=== PATIENT | female | born 1945 | race Caucasian/White ===

== ENCOUNTER 2016-12-07 08:43 | Emergency (ER) | payer MEDICARE, BC ==
--- NOTE | 2016-12-07 09:05 | Emergency Department Record ---
History of Present Illness - General Chief complaint: Rectal bleeding Stated complaint: Rectal Bleed Time Seen by Provider: 12/07/16 08:56 Source: Patient Mode of Arrival: Ambulatory Limitations: No limitations - History of Present Illness Initial comments: The patient is here due to having rectal bleeding for one day. She has had mild abdominal cramping in the lower abdomen and then has had bright red blood per rectum. The patient states she has had 7-8 episodes of bleeding since the onset at 4pm yesterday. She denies any dizziness, lightheadedness, nausea, vomiting, fever or chills. Her last colonoscopy was over 10 years ago and her only abdominal surgery was an exploratory surgery with an Appendectomy. She states she has no hx of similar issues or problems. Presently the patient only has some cramping prior to the bleeding and no pain in between episodes. MD complaint: Gross hematochezia Onset/Timin -: Days(s) Radiation: Suprapubic Severity scale (1-10): 5 Quality: Cramping Consistency: Intermittent - Related Data Home Medications Medication Instructions Recorded Confirmed Last Taken Aspirin 325 mg PO DAILY 12/07/16 12/07/16 1 Day Ago ~12/06/16 Previous Rx's Medication Instructions Recorded Ciprofloxacin HCl [Cipro] 500 mg PO Q12HR #14 tablet 12/07/16 Metronidazole [Flagyl] 500 mg PO BID #14 tablet 12/07/16 Allergies Allergy/AdvReac Type Severity Reaction Status Date / Time iodine Allergy Severe ANAPHYLAXIS Verified 12/07/16 08:49 erythromycin base Allergy Intermediate VOMITING Verified 12/07/16 08:49 Travel Screening - Travel/Exposure Within Last 30 Days Have you traveled within the last 30 days?: No - Travel/Exposure Within Last Year Have you traveled outside the [place] in the last year?: No - Additonal Travel Details Have you been exposed to anyone with a communicable illness?: No - Travel Symptoms Symptom Screening: None Review of Systems Constitutional: Denies: Chills, Fever Eyes: Denies: Eye discharge ENT: Denies: Congestion Respiratory: Denies: Cough, Dyspnea Past Medical History - SOCIAL HISTORY Smoking Status: Never smoker Alcohol Use: Rare Drug Use: None - RESPIRATORY Hx Respiratory Disorders: No - CARDIOVASCULAR Hx Cardio Disorders: No - NEURO Hx Neuro Disorders: No - GI Hx GI Disorders: No - Hx Genitourinary Disorders: No - ENDOCRINE Hx Endocrine Disorders: No - MUSCULOSKELETAL Hx Musculoskeletal Disorders: No - PSYCH Hx Psych Problems: No - HEMATOLOGY/ONCOLOGY Hx Hematology/Oncology Disorders: No Family Medical History Any Significant Family History?: Yes Physical Exam - General General Appearance: Alert, Oriented x3, Cooperative, No acute distress - Head Head exam: Atraumatic, Normocephalic, Normal inspection - Eye Eye exam: Normal appearance, PERRL - Neck Neck exam: Normal inspection, Full ROM. negative: Tenderness - Respiratory Respiratory exam: Normal lung sounds bilaterally. negative: Respiratory distress - Cardiovascular Cardiovascular Exam: Regular rate, Normal rhythm, Normal heart sounds - GI/Abdominal GI/Abdominal exam: Soft, Normal bowel sounds. negative: Distended, Rebound, Rigid, Tenderness - Rectal Rectal exam: Heme (+) stool (weakly but only mucus present.), Normal inspection , Normal rectal tone. negative: Hemorrhoids, Tenderness - Extremities Extremities exam: Normal inspection, Full ROM, Normal capillary refill. negative: Tenderness - Back Back exam: Reports: Normal inspection, Full ROM. Denies: Muscle spasm, Rash noted, Tenderness - Neurological Neurological exam: Alert, Normal gait. negative: Abnormal gait, Motor sensory deficit Course Vital Signs 12/07/16 08:44 Temperature 97.9 F Pulse Rate 100 H Respiratory 18 Rate Blood Pressure 133/109 Pulse Ox 97 - Reevaluation(s) Reevaluation #1: The patient is doing very well at this time. Presently she denies any abdominal pain or discomfort and on exam has only very mild discomfort with palpation to the upper abdomen. I did discuss the CT and lab results and will refer the patient to GI. She also is to see her PCP to get the pelvis US ordered. 12/07/16 10:09 Reevaluation #2: The patient is doing very well at this time. She denies any pain and has had no bleeding for over 4 hours. I did explain to her that we will observe her here for another hour and are setting her up for a colonoscopy in [address] Leroy. 12/07/16 11:03 Reevaluation #3: The patient is doing well. She presently denies any pain or discomfort but is having some cramping off and on. There has been no further bleeding here in the ER. On recheck her temp is 97.7 orally and her abdomen is very soft with only very minimal tenderness over the R upper and lower abdomen. We do have the patient set up for a Colonoscopy in 4 days here in the Specialty clinic with Dr. Leroy. 12/07/16 12:01 Medical Decision Making - Data Complexity MDM Data: Labs Ordered and/or Reviewed, X-Ray Ordered and/or Reviewed - Lab Data Result diagrams: 12/07/16 08:55 12/07/16 08:55 - Radiology Data Radiology results: Report reviewed (Abd/pelvis CT: Nonspecific wall thickening descending colon with nonspecific colitis. Bulky appearance of the uterus, outpatient US recommended.) Disposition Disposition: Discharge Clinical Impression: Colitis Disposition: Home, Self-Care Condition: (2) Stable Instructions: Rectal Bleeding (ED) Additional Instructions: Please stop your aspirin and eat a very bland diet. Please continue the Cipro and Flagyl tonight and use Tylenol for pain. Please see your PCP later this week for recheck and to have the Pelvic US ordered. Also please keep the appointment with Dr. Leroy for Wednesday for the Colonoscopy. Return to the ER for any pain, fever, vomiting, or increased bleeding. Prescriptions: Ciprofloxacin HCl [Cipro] 500 mg PO Q12HR #14 tablet Metronidazole [Flagyl] 500 mg PO BID #14 tablet Referrals: [facility] [Provider Group] Forms: Patient Portal Access Time of Disposition: 12:07 Quality - Quality Measures Quality Measures: N/A - Blood Pressure Screening View Details: Yes Does Patient Have Any of the Following: No Blood Pressure Classification: Pre-Hypertensive BP Reading Systolic Measurement: 138 Diastolic Measurement: 89 Screening for High Blood Pressure: < Pre-Hypertensive BP, F/U Documented > [ [id number]] Pre-Hypertensive Follow-up Interventions: Referral to alternative/primary care provider.
[2016-12-07 09:10] LABS: BASO % 0.1 % (0-6); EOS % 0.2 % (0-6); GRAN % 77.9 % (47-80); HEMATOCRIT 45.4 % (35.0-47.0); LYMPH % 14.6 % (16-45); MEAN CELL VOLUME 92.3 fl (81-97); MEAN CORPUSCULAR HEMOGLOBIN 32.5 pg (27-33); MEAN CORPUSCULAR HGB CONC 35.2 g/dl (32-36); MONO % 7.2 % (0-9); PLATELET COUNT 252 K/uL (130-400); RED BLOOD COUNT 4.92 M/uL (3.80-5.40); RED CELL DISTRIBUTION WIDTH 12.8 % (11.5-14.5); WHITE BLOOD COUNT W/O DIFF 16.6 K/uL (4.2-12.2)
[2016-12-07 09:23] LABS: INR 0.93; PARTIAL THROMBOPLASTIN TIME 25.9 SECONDS (24.5-39.1)
[2016-12-07 09:27] LABS: ALB/GLOB RATIO 1.3 (1.1-1.8); ALBUMIN 4.3 g/dL (4.0-5.0); ALKALINE PHOSPHATASE 84 U/L (35-104); ALT/SGPT 17 U/L (<33); AST/SGOT 26 U/L (10.0-35.0); BLOOD UREA NITROGEN 16 mg/dL (8-23); CREATININE 0.8 mg/dL (0.5-0.9); EST GLOMERULAR FILTRATION RATE > 60 mL/min; GLUCOSE,RANDOM 112 mg/dL (74-109); LIPASE 15 U/L (13-60); TOTAL PROTEIN 7.6 g/dL (6.6-8.7)
[2016-12-07] MEDS ORDERED: ERTAPENEM SODIUM 1 G in 0.9 % SODIUM CHLORIDE 100ML 100 ML IVPB ONE (10:06)
--- NOTE | 2016-12-08 18:01 | CT SCAN REPORT ---
EXAM: CT SCAN ABDOMEN/PELVIS WO CONTRAST HISTORY: RECTAL BLEEDING. COMPARISON: None. TECHNIQUE: Sequential axial images were obtained from the diaphragms through the ischiorectal fossa without intravenous or oral contrast administration. FINDINGS: The visualized lung bases appear normal. The non-opacified liver, gallbladder, pancreas, spleen, adrenal glands, and kidneys appear normal. There is a long segment of wall thickening and adjacent inflammatory change involving the descending colon. Findings are consistent with nonspecific colitis. The small bowel appears normal. There is a bulky appearance to the uterus, likely related to fibroid change. Ovarian mass cannot be entirely excluded. Further evaluation with ultrasound is recommended on an outpatient basis. The urinary bladder appears normal. The osseous structures are normal. IMPRESSION: 1. LONG-SEGMENT OF WALL THICKENING INVOLVING THE DESCENDING COLON. FINDINGS ARE CONSISTENT WITH NONSPECIFIC COLITIS. 2. BULKY APPEARANCE TO THE UTERUS. FINDINGS MAY BE RELATED TO FIBROID CHANGE OR ADNEXAL MASS. FURTHER EVALUATION WITH ULTRASOUND IS RECOMMENDED ON AN OUTPATIENT BASIS. JOB NUMBER: [id number] MTDD
== END 2016-12-07 12:14 | disposition home or self-care (01) ==
LOC: ER 08:43
DX: K52.9 Noninfective gastroenteritis and colitis, unspecified (principal); K92.1 Melena; R10.31 Right lower quadrant pain; R10.11 Right upper quadrant pain
CPT/HCPCS: 74176; 80053; 83690; 85025; 85610; 85730; 96374; 99284

== ENCOUNTER 2016-12-11 10:00 | Day surgery (SDC) | payer MEDICARE, BC ==
[2016-12-11] MEDS ORDERED: LIDOCAINE 2% MDV (20MG/ML) 20ML VIAL IV ONE (10:01)
[2016-12-11] MEDS ORDERED: PROPOFOL 10 MG/ML VIAL IV ONE (10:01)
--- NOTE | 2016-12-14 08:20 | Operative Note ---
DATE OF SURGERY: 12/11/2016 SURGEON: Michel Leroy MD OPERATION: COLONOSCOPY. INDICATIONS: This is a 71-year-old female with history of rectal bleeding who presented for colonoscopy. POSTOPERATIVE DIAGNOSES: 1. Segmental sigmoid colitis. 2. A 3 mm sessile polyp in the descending colon that was removed by cold biopsy forceps. 3. Otherwise normal colon. ANESTHESIA: Sedation is per Anesthesia. Pulse oximetry was monitored throughout the procedure to maintain O2 saturation of 90% or greater. Supplemental oxygen was administered via nasal cannula. Cardiac and vital signs were monitored throughout the duration of the procedure, and they were stable. The procedure of colonoscopy and risks and alternatives of the procedure, including the risk of bleeding and perforation, among others, were explained to the patient who voiced understanding and agreed to have the procedure done. Physical examination was performed, and the patient was found stable for sedation. PROCEDURE: The patient was placed in the left lateral position. Sedation was initiated. A digital rectal exam was performed and showed some mild external hemorrhoids with no palpable rectal masses. An Olympus PCF-180AL colonoscope was then inserted into the rectum under direct visualization. It was advanced to the cecum without difficulty. The ileocecal valve and appendiceal orifice were identified and photographed. The colonic mucosa was carefully examined upon introduction of the colonoscope. In the sigmoid colon was a segment of about 3 cm that appeared erythematous with observation but no mass lesions were noted. In the descending colon was a 3 mm sessile polyp that was noted and was removed by cold biopsy forceps. The rest of the colonic mucosa appeared normal. The bowel preparation was good. The ileocecal valve was intubated and the terminal ileum mucosa was inspected for about 10 cm and it appeared normal. The colonoscope was then withdrawn and the procedure was terminated. The patient tolerated the procedure well without any immediate complications. She remained with stable vital signs and was transferred to the recovery room. RECOMMENDATIONS: 1. The patient should be on a low-residue diet for 2 weeks and thereafter to be on a high-fiber diet. 2. The patient is to have a repeat colonoscopy as needed. Thank you for allowing me to participate in the care of your patient. CC: KENRICK Sloan
== END 2016-12-11 12:00 | disposition home or self-care (01) ==
LOC: HOP 10:00
PROVIDERS: ATTEND Internal Medicine Gastroenterology
DX: K62.5 Hemorrhage of anus and rectum (principal); D12.4 Benign neoplasm of descending colon; K52.9 Noninfective gastroenteritis and colitis, unspecified